=== PATIENT | male | born 1975 | race Caucasian/White ===

== ENCOUNTER 2018-02-22 00:54 | Emergency (ER) | payer MEDICAID ==
[~2018-02-22] VITALS: Ht 180.3 cm; Wt 86.3 kg
[~2018-02-22 00:54] MED LIST: CLIN-26 PO; NO HOME MEDS; ZOF4T PO
[2018-02-22] MEDS ORDERED: bacitracin 15gm ointment TP ONE (01:10)
[2018-02-22] MEDS ORDERED: TETanus/Pertussis (Acell)/Diphther VAC/PF (Tdap-Adult) 0.5ml syringe IMVAC ONE (01:40)
[2018-02-22] MEDS ORDERED: CEPH500C5 PO (02:06)
[2018-02-22] MEDS ORDERED: HYDR-569 PO (02:06)
[2018-02-22 02:10] VITALS: BP 148/100
== END 2018-02-22 02:14 | disposition home or self-care (01) ==
LOC: ER 00:55
DX: S51.811A Laceration without foreign body of right forearm, initial encounter (principal); F12.90 Cannabis use, unspecified, uncomplicated; F15.90 Other stimulant use, unspecified, uncomplicated; F10.20 Alcohol dependence, uncomplicated; Z79.899 Other long term (current) drug therapy; Z79.2 Long term (current) use of antibiotics; V87.8XXA Person injured in other specified noncollision transport accidents involving motor vehicle (traffic), initial encounter; Y93.89 Activity, other specified; Y92.410 Unspecified street and highway as the place of occurrence of the external cause; Y99.8 Other external cause status; Y90.9 Presence of alcohol in blood, level not specified
CPT/HCPCS: 12002; 90471; 90715; 99283; A6449

== ENCOUNTER 2018-09-02 10:46 | Emergency (ER) | payer MEDICAID ==
[~2018-09-02] VITALS: Ht 177.8 cm; Wt 86.4 kg
[~2018-09-02 10:46] MED LIST changes: +CEPH500C5 PO; +HYDR-4383 PO
[2018-09-02 10:51] VITALS: BP 129/93
[2018-09-02] MEDS ORDERED: ACET-3067 PO (11:39)
[2018-09-02] MEDS ORDERED: ibuprofen tablet 400 MG TABLET PO ONE (11:40)
== END 2018-09-02 11:58 | disposition home or self-care (01) ==
LOC: ER 10:47
DX: S46.092A Other injury of muscle(s) and tendon(s) of the rotator cuff of left shoulder, initial encounter (principal); M25.512 Pain in left shoulder; F12.10 Cannabis abuse, uncomplicated; F15.10 Other stimulant abuse, uncomplicated; Z79.899 Other long term (current) drug therapy; V19.9XXA Pedal cyclist (driver) (passenger) injured in unspecified traffic accident, initial encounter; Y93.89 Activity, other specified; Y92.89 Other specified places as the place of occurrence of the external cause; Y99.8 Other external cause status
CPT/HCPCS: 73030; 99284

== ENCOUNTER 2018-11-04 07:15 | Emergency (ER) | payer MEDICAID ==
[~2018-11-04] VITALS: Ht 177.8 cm; Wt 84.1 kg
[2018-11-04 07:21] VITALS: BP 126/80
[2018-11-04] MEDS ORDERED: SULF1TAB49 PO (08:22)
[2018-11-04] MEDS ORDERED: CEPH250T PO (08:22)
[2018-11-04] MEDS ORDERED: cephalexin 250mg capsule PO ONE (08:25)
[2018-11-04] MEDS ORDERED: sulfamethoxazole/trimethoprim DS (800/160mg) tablet PO ONE (08:25)
[2018-11-04] MEDS ORDERED: ondansetron 4mg rapidly disintigrating tab PO ONE (08:25)
== END 2018-11-04 09:19 | disposition home or self-care (01) ==
LOC: ER 07:16
DX: L03.311 Cellulitis of abdominal wall (principal); F12.90 Cannabis use, unspecified, uncomplicated; F15.90 Other stimulant use, unspecified, uncomplicated; Z98.890 Other specified postprocedural states; Z79.2 Long term (current) use of antibiotics; Z79.899 Other long term (current) drug therapy
CPT/HCPCS: 99284

== ENCOUNTER 2019-02-12 11:13 | Emergency (ER) | payer MEDICAID ==
[~2019-02-12] VITALS: Ht 177.8 cm; Wt 86.4 kg
[2019-02-12] MEDS ORDERED: IMIQ1CRE TP (11:42)
[2019-02-12 11:54] VITALS: BP 140/78
== END 2019-02-12 11:57 | disposition home or self-care (01) ==
LOC: ER 11:14
DX: A63.0 Anogenital (venereal) warts (principal); F12.90 Cannabis use, unspecified, uncomplicated; F15.90 Other stimulant use, unspecified, uncomplicated; Z98.890 Other specified postprocedural states; Z79.2 Long term (current) use of antibiotics; Z79.899 Other long term (current) drug therapy
CPT/HCPCS: 99283

== ENCOUNTER 2020-02-29 03:38 | Emergency (ER) | payer MEDICAID ==
[~2020-02-29] VITALS: Ht 177.8 cm; Wt 92.3 kg
[~2020-02-29 03:38] MED LIST changes: -CEPH500C5 PO; +IMIQ1CRE TP
[2020-02-29 03:42] VITALS: BP 131/84
[2020-02-29] MEDS ORDERED: LIDOcaine 1% W/epiNEPHrine 1:200,000 10ml vial IJ ONE (04:10)
[2020-02-29] MEDS ORDERED: LIDOcaine 1% w/epiNEPHrine 1:200,000 30ml vial IJ ONE (04:20)
== END 2020-02-29 05:26 | disposition home or self-care (01) ==
LOC: ER 03:38
DX: M25.462 Effusion, left knee (principal); F17.200 Nicotine dependence, unspecified, uncomplicated; F12.90 Cannabis use, unspecified, uncomplicated; F15.90 Other stimulant use, unspecified, uncomplicated; Z98.890 Other specified postprocedural states; Z79.899 Other long term (current) drug therapy
CPT/HCPCS: 20611; 99284

== ENCOUNTER 2022-05-14 06:43 | Emergency (ER) | payer MEDICAID ==
[~2022-05-14] VITALS: Ht 177.8 cm; Wt 93.0 kg
[~2022-05-14 06:43] MED LIST changes: -IMIQ1CRE TP; +IMIQ1CRE22 TP
--- NOTE | 2022-05-14 07:11 | NUR ---
pt to ct and xray, ekg will be done after
[2022-05-14 07:24] LABS: BASOPHILS % (AUTO) 0.3 % (0-1); EOSINOPHILS # (AUTO) 0.4 X10'3 (0-0.9); EOSINOPHILS % (AUTO) 4.3 % (0-6); HEMATOCRIT 45.6 % (42.0-52.0); HEMOGLOBIN 15.5 g/dl (14.0-17.9); LYMPHOCYTES # (AUTO) 1.3 X10'3 (1.1-4.8); LYMPHOCYTES % (AUTO) 12.7 % (21-51); MEAN CORPUSCULAR HEMOGLOBIN 30.5 PG (27.0-31.0); MEAN CORPUSCULAR HGB CONC 34.1 g/dL (33.0-36.5); MEAN CORPUSCULAR VOLUME 89.5 FL (78-98); MEAN PLATELET VOLUME 7.4 FL (7.4-10.4); MONOCYTES # (AUTO) 0.8 X10'3 (0-0.9); MONOCYTES % (AUTO) 8.2 % (2-12); NEUTROPHILS # (AUTO) 7.4 X10'3 (1.8-7.7); NEUTROPHILS % (AUTO) 74.5 % (42-75); PLATELET COUNT 258 X10'3 (140-440); RED BLOOD COUNT 5.09 X10'6 (4.70-6.10); RED CELL DISTRIBUTION WIDTH 13.9 % (11.5-14.5); WHITE BLOOD COUNT 9.9 X10'3 (4.5-11.0)
[2022-05-14 07:33] LABS: APTT 29 SECONDS (22-32)
[2022-05-14 07:35] LABS: ALANINE AMINOTRANSFERASE 21 U/L (12-78); ALBUMIN 3.9 G/DL (3.4-5.0); ALKALINE PHOSPHATASE 95 IU/L (46-116); ANION GAP 11 (8-16); ASPARTATE AMINO TRANSFERASE 25 U/L (10-37); BILIRUBIN,TOTAL 0.4 MG/DL (0.1-1.0); BLOOD UREA NITROGEN 11 MG/DL (7-18); BUN/CREATININE RATIO 11.1 (5.4-32.0); CALCIUM 9.4 MG/DL (8.5-10.1); CHLORIDE 100 MMOL/L (99-107); CREATININE 0.99 MG/DL (0.60-1.10); GLUCOSE 92 MG/DL (70-104); POTASSIUM 3.6 MMOL/L (3.5-5.1); SODIUM 137 MMOL/L (135-145); TOTAL CARBON DIOXIDE 26.1 MMOL/L (24-32); TOTAL PROTEIN 7.8 G/DL (6.4-8.2); eGFR 80 ML/MIN
[2022-05-14] MEDS ORDERED: iohexol 350MG/ML 100ml bottle IV ONE (08:52)
[2022-05-14 09:38] LABS: CLARITY,URINE CLEAR (Clear); COLOR,URINE YELLOW (Yellow); GLUCOSE, URINE NEGATIVE (Neg); KETONES,URINE NEGATIVE (Neg); LEUKOCYTE ESTERASE ,URINE NEGATIVE (Neg); NITRITES, URINE NEGATIVE (Neg); OCCULT BLOOD,URINE NEGATIVE (Neg); PH,URINE 6.5 (4.8-8.0); PROTEIN,URINE NEGATIVE (Neg); UROBILINOGEN,URINE 0.2 E.U/dL (0.2-1.0)
[2022-05-14 09:44] LABS: UA COLLECTION TYPE VOIDED
[2022-05-14 11:05] LABS: URINE AMPHETAMINE SCREEN POSITIVE (Neg); URINE BARBITUATE SCREEN NEGATIVE (Neg); URINE BENZODIAZEPINES SCREEN NEGATIVE (Neg); URINE CANNABINOID SCREEN POSITIVE (Neg); URINE COCAINE SCREEN NEGATIVE (Neg); URINE METHADONE SCREEN NEGATIVE (Neg); URINE OPIATE SCREEN NEGATIVE (Neg); URINE PHENCYCLIDINE SCREEN NEGATIVE (Neg)
[2022-05-14 11:58] VITALS: BP 104/68
--- NOTE | 2022-05-14 12:01 | NUR ---
PT leaving for MRI
--- NOTE | 2022-05-14 13:24 | NUR ---
RN was on break from 1253 till 1323. Asked break nurse if pt had come back from MRI per break nurse pt had not.
--- NOTE | 2022-05-14 14:10 | NUR ---
RN called MRI to inquire about pt. Per angiography technologist pt was dropped off "long time ago". Charge nurse made aware.
--- NOTE | 2022-05-14 14:15 | NUR ---
PT's mother on file called and pt's cell phone number obtained.
--- NOTE | 2022-05-14 14:31 | NUR ---
PD called and informed about pt's elopment by rn progressive care unit
--- NOTE | 2022-05-14 14:33 | NUR ---
PT eloped w/ IV
[2022-05-14] MEDS ORDERED: GADOTERATE MEGLUMINE 7.5 MMOL/15 ML VIAL IV ONE (18:40)
== END 2022-05-14 14:40 | disposition left against medical advice (07) ==
LOC: ER 06:44
DX: R20.2 Paresthesia of skin (principal); F19.10 Other psychoactive substance abuse, uncomplicated; F12.90 Cannabis use, unspecified, uncomplicated; F15.90 Other stimulant use, unspecified, uncomplicated; Z98.890 Other specified postprocedural states; Z72.89 Other problems related to lifestyle; Z79.2 Long term (current) use of antibiotics; Z79.899 Other long term (current) drug therapy
CPT/HCPCS: 36415; 70450; 70496; 70498; 70552; 70553; 71045; 80053; 80305; 81003; 82948; 85025; 85610; 85730; 93005; 99285; A9575; Q9967

== ENCOUNTER 2022-07-16 11:02 | Emergency (ER) | payer MEDICAID ==
[~2022-07-16] VITALS: Ht 177.8 cm; Wt 91.8 kg
[2022-07-16 11:48] VITALS: BP 130/79
[2022-07-16] MEDS ORDERED: IBUP-1986 PO (13:19)
[2022-07-16] MEDS ORDERED: CYCL-1 PO (13:19)
[2022-07-16] MEDS ORDERED: ketorolac trometh. 30mg/ml inj. IM ONE (13:20)
[2022-07-16] MEDS ORDERED: cyclobenzaprine 10mg tablet PO ONE (13:20)
== END 2022-07-16 13:44 | disposition home or self-care (01) ==
LOC: ER 11:02
DX: M54.50 Low back pain, unspecified (principal); F12.90 Cannabis use, unspecified, uncomplicated; F15.90 Other stimulant use, unspecified, uncomplicated; Z72.89 Other problems related to lifestyle; Z79.899 Other long term (current) drug therapy
CPT/HCPCS: 96372; 99283; J1885

== ENCOUNTER 2022-08-10 03:55 | Emergency (ER) | payer MEDICAID ==
[~2022-08-10] VITALS: Ht 177.8 cm; Wt 89.0 kg
[~2022-08-10 03:55] MED LIST changes: +CYCL-1 PO; +IBUP-1986 PO
[2022-08-10] MEDS ORDERED: iohexol 350MG/ML 100ml bottle IV ONE (05:06)
[2022-08-10 05:39] LABS: HEMOGLOBIN 14.2 g/dl (14.0-17.9); WHITE BLOOD COUNT 7.3 X10'3 (4.5-11.0)
[2022-08-10 05:41] VITALS: BP 120/70
[2022-08-10 05:41] LABS: BASOPHILS % (AUTO) 0.4 % (0-1); EOSINOPHILS # (AUTO) 0.3 X10'3 (0-0.9); EOSINOPHILS % (AUTO) 4.7 % (0-6); HEMATOCRIT 42.9 % (42.0-52.0); LYMPHOCYTES # (AUTO) 1.8 X10'3 (1.1-4.8); LYMPHOCYTES % (AUTO) 25.1 % (21-51); MEAN CORPUSCULAR HEMOGLOBIN 29.4 PG (27.0-31.0); MEAN CORPUSCULAR VOLUME 89.2 FL (78-98); MONOCYTES # (AUTO) 0.8 X10'3 (0-0.9); MONOCYTES % (AUTO) 10.3 % (2-12); NEUTROPHILS # (AUTO) 4.4 X10'3 (1.8-7.7); NEUTROPHILS % (AUTO) 59.5 % (42-75); PLATELET COUNT 268 X10'3 (140-440); RED BLOOD COUNT 4.81 X10'6 (4.70-6.10); RED CELL DISTRIBUTION WIDTH 14.1 % (11.5-14.5)
[2022-08-10 05:54] LABS: ALANINE AMINOTRANSFERASE 21 U/L (12-78); ALBUMIN/GLOBULIN RATIO 1.2 (1.1-1.5); ALKALINE PHOSPHATASE 80 IU/L (46-116); ANION GAP 9 (8-16); ASPARTATE AMINO TRANSFERASE 22 U/L (10-37); BILIRUBIN,TOTAL 0.4 MG/DL (0.1-1.0); BLOOD UREA NITROGEN 13 MG/DL (7-18); BUN/CREATININE RATIO 13.5 (5.4-32.0); CALCIUM 9.5 MG/DL (8.5-10.1); CHLORIDE 104 MMOL/L (99-107); CREATININE 0.96 MG/DL (0.60-1.10); GLUCOSE 104 MG/DL (70-104); POTASSIUM 3.8 MMOL/L (3.5-5.1); SODIUM 139 MMOL/L (135-145); TOTAL CARBON DIOXIDE 25.8 MMOL/L (24-32); TOTAL PROTEIN 7.3 G/DL (6.4-8.2); eGFR 83 ML/MIN
== END 2022-08-10 10:05 | disposition home or self-care (01) ==
LOC: ER 03:57
DX: R04.2 Hemoptysis (principal); R91.1 Solitary pulmonary nodule; C34.90 Malignant neoplasm of unspecified part of unspecified bronchus or lung; F12.90 Cannabis use, unspecified, uncomplicated; F15.20 Other stimulant dependence, uncomplicated
CPT/HCPCS: 36415; 71046; 71275; 80053; 84145; 85025; 85610; 99285; J3490; Q9967

== ENCOUNTER 2023-01-22 12:26 | Emergency (ER) | payer MEDICAID ==
[2023-01-22] MEDS ORDERED: NAPR-1154 PO (17:18)
== END 2023-01-22 14:53 | disposition left against medical advice (07) ==
LOC: ER 12:27
DX: Z02.89 Encounter for other administrative examinations (principal); Z53.21 Procedure and treatment not carried out due to patient leaving prior to being seen by health care provider

== ENCOUNTER 2023-01-22 14:43 | Emergency (ER) | payer MEDICAID ==
[~2023-01-22] VITALS: Ht 177.8 cm; Wt 93.2 kg
[2023-01-22 15:42] VITALS: BP 127/88; PULSE 95; RESP 18; TEMP 98.3; O2SAT 96
[2023-01-22] MEDS ORDERED: NAPR-1154 PO (17:18)
[2023-01-22] MEDS ORDERED: naproxen 500mg tablet PO ONE (17:20)
== END 2023-01-22 17:49 | disposition home or self-care (01) ==
LOC: ER 14:44
DX: M25.562 Pain in left knee (principal); Z02.89 Encounter for other administrative examinations; F17.200 Nicotine dependence, unspecified, uncomplicated; F12.90 Cannabis use, unspecified, uncomplicated; F15.90 Other stimulant use, unspecified, uncomplicated; Z72.89 Other problems related to lifestyle; Z98.890 Other specified postprocedural states; Z79.899 Other long term (current) drug therapy
CPT/HCPCS: 99282

== ENCOUNTER 2024-04-30 06:55 | Emergency (ER) | payer MEDICAID ==
[~2024-04-30] VITALS: Ht 177.8 cm; Wt 88.6 kg
[~2024-04-30 06:55] MED LIST changes: +NAPR-1154 PO
[2024-04-30 06:56] VITALS: BP 132/81; PULSE 89; RESP 13; TEMP 98; O2SAT 98
== END 2024-04-30 08:09 | disposition left against medical advice (07) ==
LOC: ER 06:56
DX: M25.561 Pain in right knee (principal); Z53.21 Procedure and treatment not carried out due to patient leaving prior to being seen by health care provider

== ENCOUNTER 2024-08-23 12:08 | Emergency (ER) | payer MEDICAID ==
[~2024-08-23] VITALS: Ht 177.8 cm; Wt 86.5 kg
[2024-08-23 13:00] LABS: BASOPHILS % (AUTO) 0.4 % (0-1); EOSINOPHILS # (AUTO) 0.4 X10'3 (0-0.9); EOSINOPHILS % (AUTO) 4.5 % (0-6); HEMOGLOBIN 14.4 g/dl (14.0-17.9); LYMPHOCYTES # (AUTO) 1.2 X10'3 (1.1-4.8); LYMPHOCYTES % (AUTO) 12.8 % (21-51); MEAN CORPUSCULAR HEMOGLOBIN 29.1 PG (27.0-31.0); MEAN CORPUSCULAR HGB CONC 32.8 g/dL (33.0-36.5); MEAN CORPUSCULAR VOLUME 88.6 FL (78-98); MEAN PLATELET VOLUME 7.5 FL (7.4-10.4); MONOCYTES # (AUTO) 1.2 X10'3 (0-0.9); MONOCYTES % (AUTO) 13.5 % (2-12); NEUTROPHILS # (AUTO) 6.3 X10'3 (1.8-7.7); NEUTROPHILS % (AUTO) 68.8 % (42-75); PLATELET COUNT 299 X10'3 (140-440); RED BLOOD COUNT 4.97 X10'6 (4.70-6.10); RED CELL DISTRIBUTION WIDTH 13.7 % (11.5-14.5); WHITE BLOOD COUNT 9.1 X10'3 (4.5-11.0)
[2024-08-23 13:13] LABS: ALBUMIN 3.4 G/DL (3.4-5.0); ANION GAP 4 (8-16); BLOOD UREA NITROGEN 11 MG/DL (7-18); BUN/CREATININE RATIO 13.4 (10.0-20.0); CALCIUM 9.2 MG/DL (8.5-10.1); CHLORIDE 100 MMOL/L (99-107); CREATININE 0.82 MG/DL (0.60-1.10); GLUCOSE 89 MG/DL (70-104); POTASSIUM 4.3 MMOL/L (3.5-5.1); SODIUM 133 MMOL/L (135-145); TOTAL CARBON DIOXIDE 28.9 MMOL/L (24-32); eCRCL 110 ML/MIN; eGFR > 90 ML/MIN
[2024-08-23] MEDS ORDERED: SULF1TAB45 PO (13:38)
[2024-08-23] MEDS ORDERED: CEPH-585 PO (13:38)
[2024-08-23] MEDS: cephalexin 250mg capsule PO ONE (14:09)
[2024-08-23] MEDS: sulfamethoxazole/trimethoprim DS (800/160mg) tablet PO ONE (14:09)
[2024-08-23 14:14] VITALS: BP 141/92; PULSE 92; RESP 16; TEMP 97.8; O2SAT 99
== END 2024-08-23 14:16 | disposition home or self-care (01) ==
LOC: ER 12:09
DX: L03.114 Cellulitis of left upper limb (principal); L02.414 Cutaneous abscess of left upper limb; F12.90 Cannabis use, unspecified, uncomplicated; F15.90 Other stimulant use, unspecified, uncomplicated; Z72.89 Other problems related to lifestyle; Z98.890 Other specified postprocedural states; Z79.1 Long term (current) use of non-steroidal anti-inflammatories (NSAID); Z79.899 Other long term (current) drug therapy
CPT/HCPCS: 29125; 36415; 80048; 83605; 84145; 85025; 87040; 99283

== ENCOUNTER 2024-08-24 06:45 | Emergency (ER) | payer MEDICAID ==
[~2024-08-24] VITALS: Ht 177.8 cm; Wt 90.0 kg
[~2024-08-24 06:45] MED LIST changes: +CEPH-585 PO; +SULF1TAB45 PO
[2024-08-24 06:56] VITALS: BP 123/87; PULSE 91; RESP 18; TEMP 97.8; O2SAT 98
== END 2024-08-24 07:46 | disposition home or self-care (01) ==
LOC: ER 06:46
DX: L02.512 Cutaneous abscess of left hand (principal); Z53.21 Procedure and treatment not carried out due to patient leaving prior to being seen by health care provider